=== PATIENT | female | born 1980 | race Caucasian/White ===

== ENCOUNTER 2018-05-31 14:29 | Inpatient (IN) ==
[2018-05-31] MEDS ORDERED: Ondansetron 4 MG/2 ML VIAL IVP ONE (14:36)
[2018-05-31] MEDS ORDERED: 0.9 % Sodium Chloride 500 ML IVC ONE (14:36)
[2018-05-31] MEDS ORDERED: Pantoprazole 40 MG VIAL IVP ONE (14:36)
[2018-05-31 15:10] LABS: Basophils # 0.1 K/mcL (0.0-0.2); Basophils % 0.3 %; Eosinophils % 0.2 %; Hematocrit 43.2 % (35.3-44.9); Hemoglobin 14.6 g/dL (11.5-15.4); Immature Granulocytes % 0.3 % (0-4); Lymphocytes # 2.5 K/mcL (0.6-4.6); Lymphocytes % 14.5 %; Mean Corpuscular HGB Conc 33.8 g/dL (31.6-35.5); Mean Corpuscular Hemoglobin 28.7 pg (28.0-33.3); Mean Platelet Volume 9.4 fL (9.4-12.4); Monocytes # 0.7 K/mcL (0.0-1.3); Platelet Count 308 K/mcL (140-400); Red Blood Count 5.08 M/mcL (3.82-4.97); Red Cell Distribution Width 12.2 % (11.5-14.5); Segmented Neutrophils % 80.7 %
[2018-05-31 15:15] LABS: Bilirubin,Urine Negative (Negative); Blood,Urine Negative (Negative); Clarity,Urine Clear (Clear); Color,Urine Yellow (Yellow); Glucose,Urine (UA) >=1000 mg/dL (Normal); Ketones,Urine 40 mg/dL (Negative); Leukocyte Esterase,Urine Negative (Negative); Nitrite,Urine Negative (Negative); Protein,Urine Negative (Neg-Trace); Specific Gravity,Urine > 1.030 (1.010-1.025); Urobilinogen,Urine Normal (Normal)
[2018-05-31 15:15] LABS: VBG HCO3 22 mEq/L (21-27); VBG PCO2 38 mmHg (41-51); VBG PH 7.37 pH Units (7.32-7.42); VBG PO2 45 mmHg (25-50)
[2018-05-31 15:20] LABS: Prothrombin Time 11.8 Seconds (9.4-12.1)
[2018-05-31 15:23] LABS: Activated Partial Thrombo Time 27.9 Seconds (26.0-36.0)
[2018-05-31 15:33] LABS: Alanine Aminotransferase 9 Units/L (7-52); Albumin/Globulin Ratio 1.2 (1.1-2.2); Alkaline Phosphatase 65 Units/L (34-104); Aspartate Amino Transferase 8 Units/L (13-39); BUN/Creatinine Ratio 20 (6-26); Bilirubin,Direct 0.1 mg/dL (0.0-0.2); Bilirubin,Indirect 0.3 mg/dL (0.0-1.2); Bilirubin,Total 0.4 mg/dL (0.3-1.0); Blood Urea Nitrogen 11 mg/dL (6-20); Calcium 9.2 mg/dL (8.6-10.3); Carbon Dioxide 19 mEq/L (23-29); Chloride 96 mEq/L (98-107); Globulin 3.4 g/dL (2.4-3.5); Glucose 467 mg/dL (70-105); Lipase 12 Units/L (11-82); Osmolality,Calculated 286 (280-300); Potassium 3.8 mEq/L (3.5-5.1); Sodium 128 mEq/L (136-145); Total Protein 7.4 g/dL (6.4-8.9); eGFR For Non-African Americans > 60 (> 60)
[2018-05-31 15:35] LABS: Troponin I 0.07 ng/mL (< 0.04)
[2018-05-31] MEDS ORDERED: Aspirin 81 MG TAB.CHEW PO ONE (15:42)
[2018-05-31] MEDS ORDERED: Nitroglycerin 0.4 MG TAB.SUBL SL PRN (15:42)
[2018-05-31] MEDS ORDERED: Nitroglycerin 0.4 MG TAB.SUBL SL ONE (15:47)
--- NOTE | 2018-05-31 16:12 | Emergency Department Note ---
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 Qualified Code(s): E11.65 - Type 2 diabetes mellitus with hyperglycemia Disposition: Admitted As Inpatient Condition: Fair Referrals: Seferino Hinojosa MD [Primary Care Provider] - Forms: ED Satisfaction Letter Time of Disposition: 16:19 Chest Pain HPI - General Chief Complaint: ED Chest Pain Stated Complaint: CP Time Seen by Provider: 05/31/18 14:33 Source: patient, EMS Limitations: no limitations Vital Signs Reviewed: Yes Nursing Notes Reviewed: Yes - History of Present Illness HPI Narrative: 38-year-old female history of diabetes, hypertension, high cholesterol presented emergency department with chest pain is radiating into her left arm. She describes a 6 out of 10 she was also short of breath. Patient does have history of diabetes said that she has been taking her insulin Raleys normally well- controlled but today it is been higher than normal. She says she normally has high blood sugars whenever she is very stressed or sick which she has both at this time. She has had no cough or congestion she has no pain with urination. Just this chest pain. She is not short of breath at all with this. Describes the pain as 6 out of 10 chest pressure that nothing is making it better. She says it is, coming and going. She notes it while she was at the store walking around and shopping. She has had 2-3 episodes of emesis nonbilious nonbloody. Otherwise patient has no completely to this time including no headache, blurry vision, neck pain, back pain, fever, chills, nausea, shortness of breath, abdominal pain, change in balance, pain with urination, pain or tingling going down the arms or legs or any generalized weakness. Severity scale (1-10): 9 - Related Data Allergies Allergy/AdvReac Type Severity Reaction Status Date / Time ibuprofen [From Advil] Allergy See Verified 05/31/18 14:38 Comments diphenhydramine AdvReac Nausea Verified 05/31/18 14:38 [From Benadryl] All systems ED: reviewed and negative except as stated. Review of Systems: As Per HPI Chest Pain PMH - Past Medical History Medical history: Reports: diabetes, GERD, hyperlipidemia, hypertension, myocardial infarction Psychiatric history: Reports: no psych history NURSING PROJECT COORDINATOR history: Reports: no NURSING PROJECT COORDINATOR history - Social History Smoking Status: Never smoker Alcohol use: Reports: none Drug use: Reports: none Physical Exam - General Limitations: no limitations General appearance: alert, in no apparent distress - Head Head exam: atraumatic, normocephalic, normal inspection - Eye Eye exam: Present: normal appearance, PERRL, EOMI - ENT ENT exam: normal exam, normal oropharynx, mucous membranes moist - Neck Neck exam: Present: normal inspection, full ROM, trachea midline - Chest Chest inspection: Present: normal inspection, symmetric chest wall rise - Respiratory Respiratory exam: Present: normal lung sounds bilaterally - Cardiovascular Cardiovascular exam: Present: regular rate, normal rhythm, normal heart sounds - Abdominal Exam Abdominal exam: Present: soft, Non-Tender, normal bowel sounds. Absent: tenderness, distention, guarding, rebound, rigidity - Extremities Exam Extremities exam: Present: normal inspection, full ROM. Absent: tenderness, pedal edema - Back Exam Back exam: Present: normal inspection, full ROM. Absent: tenderness, CVA tenderness (R), CVA tenderness (L) - Neurological Exam Neurological exam: Present: alert, oriented X3 - Skin Skin exam: Present: warm, dry, intact, normal color Course Vital Signs Temperature 98.7 F 05/31/18 14:31 Pulse Rate 84 05/31/18 14:31 Respiratory Rate 20 05/31/18 14:31 Blood Pressure 192/96 05/31/18 14:31 O2 Sat by Pulse Oximetry 100 05/31/18 14:31 Temperature 98.7 F 05/31/18 14:31 Pulse Rate 66 05/31/18 16:00 Respiratory Rate 17 05/31/18 16:00 Blood Pressure 166/110 05/31/18 16:00 O2 Sat by Pulse Oximetry 100 05/31/18 16:00 Oxygen Delivery Oxygen Delivery Room Air Chest Pain - MDM Narrative Medical decision making narrative: Normal chest pain workup was done. Patient did an elevated troponin of 0.07. Did have leukocytosis as well. Is no noticeable signs of infection in a gap was normal patient was not in DKA at this time. Patient most likely is having an acute coronary syndrome event that is causing her elevation in blood sugar. I did give patient nitroglycerin which did mildly help with her chest pain. We did do 2 EKGs both of them had no acute changes. Patient most likely is having an NSTEMI at this time. Due to patient having elevated troponin as well as his hyperglycemia I feel patient needs to be admitted for further evaluation. As with the hospitalist Dr. Medina who agreed to admit the patient to their service. Patient's admitted in stable condition. Chest X-Ray 05/31/18 14:37 IMPRESSION: No acute disease. D/ / Sara Hussein Cha, MD / Sara Hussein Cha, MD Interpreting Provider: Sara Hussein Cha, MD - Medical Records Medical records reviewed: Yes I reviewed the patient's medical records. - Lab Data Lab results reviewed: Yes I reviewed the patient's lab results. Result diagrams: 05/31/18 14:52 05/31/18 14:52 Lab Results 05/31/18 05/31/18 05/31/18 Range/Units 14:36 14:39 14:42 WBC (4.3-11.1) K/mcL RBC (3.82-4.97) M/mcL Hgb (11.5-15.4) g/dL Hct (35.3-44.9) % MCV (83.0-100.0) fL MCH (28.0-33.3) pg MCHC (31.6-35.5) g/dL RDW (11.5-14.5) % Plt Count (140-400) K/mcL MPV (9.4-12.4) fL Immature Gran % (0-4) % Seg Neutrophils % % Lymphocytes % % Monocytes % % Eosinophils % % Basophils % % Neutrophils # (1.6-8.9) K/mcL Lymphocytes # (0.6-4.6) K/mcL Monocytes # (0.0-1.3) K/mcL Eosinophils # (0.0-0.6) K/mcL Basophils # (0.0-0.2) K/mcL PT 11.8 (9.4-12.1) Seconds INR 1.0 APTT 27.9 (26.0-36.0) Seconds VBG pH (7.32-7.42) pH Units VBG pCO2 (41-51) mmHg VBG pO2 (25-50) mmHg VBG HCO3 (21-27) mEq/L Sodium (136-145) mEq/L Potassium (3.5-5.1) mEq/L Chloride (98-107) mEq/L Carbon Dioxide (23-29) mEq/L BUN (6-20) mg/dL Creatinine (0.60-1.20) mg/dL Est GFR ( Amer) (> 60) Est GFR (Non-Af Amer) (> 60) BUN/Creatinine Ratio (6-26) Glucose (70-105) mg/dL POC Glucose 419 H* (70-99) mg/dL Calculated Osmolality (280-300) Calcium (8.6-10.3) mg/dL Total Bilirubin (0.3-1.0) mg/dL Direct Bilirubin (0.0-0.2) mg/dL Indirect Bilirubin (0.0-1.2) mg/dL AST (13-39) Units/L ALT (7-52) Units/L Alkaline Phosphatase (34-104) Units/L Troponin I (< 0.04) ng/mL Serum Total Protein (6.4-8.9) g/dL Albumin (3.5-5.7) g/dL Globulin (2.4-3.5) g/dL Albumin/Globulin Ratio (1.1-2.2) Lipase (11-82) Units/L Beta-Hydroxybutyric Acd 1.03 H (0.02-0.27) mmol/L Urine Color (Yellow) Urine Clarity (Clear) Urine pH (5.0-8.0) pH Units Ur Specific Pride (1.010-1.025) Urine Protein (Neg-Trace) mg/dL Urine Glucose (UA) (Normal) mg/dL Urine Ketones (Negative) mg/dL Urine Blood (Negative) Urine Nitrite (Negative) Urine Bilirubin (Negative) Urine Urobilinogen (Normal) mg/dL Ur Leukocyte Esterase (Negative) Ur Culture Indicated? (NO) Urine Test (Negative) 05/31/18 05/31/18 05/31/18 Range/Units 14:43 14:52 14:52 WBC 17.4 H (4.3-11.1) K/mcL RBC 5.08 H (3.82-4.97) M/mcL Hgb 14.6 (11.5-15.4) g/dL Hct 43.2 (35.3-44.9) % MCV 85.0 (83.0-100.0) fL MCH 28.7 (28.0-33.3) pg MCHC 33.8 (31.6-35.5) g/dL RDW 12.2 (11.5-14.5) % Plt Count 308 (140-400) K/mcL MPV 9.4 (9.4-12.4) fL Immature Gran % 0.3 (0-4) % Seg Neutrophils % 80.7 % Lymphocytes % 14.5 % Monocytes % 4.0 % Eosinophils % 0.2 % Basophils % 0.3 % Neutrophils # 14.0 H (1.6-8.9) K/mcL Lymphocytes # 2.5 (0.6-4.6) K/mcL Monocytes # 0.7 (0.0-1.3) K/mcL Eosinophils # 0.0 (0.0-0.6) K/mcL Basophils # 0.1 (0.0-0.2) K/mcL PT (9.4-12.1) Seconds INR APTT (26.0-36.0) Seconds VBG pH (7.32-7.42) pH Units VBG pCO2 (41-51) mmHg VBG pO2 (25-50) mmHg VBG HCO3 (21-27) mEq/L Sodium 128 L (136-145) mEq/L Potassium 3.8 (3.5-5.1) mEq/L Chloride 96 L (98-107) mEq/L Carbon Dioxide 19 L (23-29) mEq/L BUN 11 (6-20) mg/dL Creatinine 0.55 L (0.60-1.20) mg/dL Est GFR ( Amer) > 60 (> 60) Est GFR (Non-Af Amer) > 60 (> 60) BUN/Creatinine Ratio 20 (6-26) Glucose 467 H (70-105) mg/dL POC Glucose 439 H* (70-99) mg/dL Calculated Osmolality 286 (280-300) Calcium 9.2 (8.6-10.3) mg/dL Total Bilirubin 0.4 (0.3-1.0) mg/dL Direct Bilirubin 0.1 (0.0-0.2) mg/dL Indirect Bilirubin 0.3 (0.0-1.2) mg/dL AST 8 L (13-39) Units/L ALT 9 (7-52) Units/L Alkaline Phosphatase 65 (34-104) Units/L Troponin I 0.07 H* (< 0.04) ng/mL Serum Total Protein 7.4 (6.4-8.9) g/dL Albumin 4.0 (3.5-5.7) g/dL Globulin 3.4 (2.4-3.5) g/dL Albumin/Globulin Ratio 1.2 (1.1-2.2) Lipase 12 (11-82) Units/L Beta-Hydroxybutyric Acd (0.02-0.27) mmol/L Urine Color (Yellow) Urine Clarity (Clear) Urine pH (5.0-8.0) pH Units Ur Specific Pride (1.010-1.025) Urine Protein (Neg-Trace) mg/dL Urine Glucose (UA) (Normal) mg/dL Urine Ketones (Negative) mg/dL Urine Blood (Negative) Urine Nitrite (Negative) Urine Bilirubin (Negative) Urine Urobilinogen (Normal) mg/dL Ur Leukocyte Esterase (Negative) Ur Culture Indicated? (NO) Urine Test (Negative) 05/31/18 05/31/18 05/31/18 Range/Units 14:56 14:56 15:10 WBC (4.3-11.1) K/mcL RBC (3.82-4.97) M/mcL Hgb (11.5-15.4) g/dL Hct (35.3-44.9) % MCV (83.0-100.0) fL MCH (28.0-33.3) pg MCHC (31.6-35.5) g/dL RDW (11.5-14.5) % Plt Count (140-400) K/mcL MPV (9.4-12.4) fL Immature Gran % (0-4) % Seg Neutrophils % % Lymphocytes % % Monocytes % % Eosinophils % % Basophils % % Neutrophils # (1.6-8.9) K/mcL Lymphocytes # (0.6-4.6) K/mcL Monocytes # (0.0-1.3) K/mcL Eosinophils # (0.0-0.6) K/mcL Basophils # (0.0-0.2) K/mcL PT (9.4-12.1) Seconds INR APTT (26.0-36.0) Seconds VBG pH 7.37 (7.32-7.42) pH Units VBG pCO2 38 L (41-51) mmHg VBG pO2 45 (25-50) mmHg VBG HCO3 22 (21-27) mEq/L Sodium (136-145) mEq/L Potassium (3.5-5.1) mEq/L Chloride (98-107) mEq/L Carbon Dioxide (23-29) mEq/L BUN (6-20) mg/dL Creatinine (0.60-1.20) mg/dL Est GFR ( Amer) (> 60) Est GFR (Non-Af Amer) (> 60) BUN/Creatinine Ratio (6-26) Glucose (70-105) mg/dL POC Glucose (70-99) mg/dL Calculated Osmolality (280-300) Calcium (8.6-10.3) mg/dL Total Bilirubin (0.3-1.0) mg/dL Direct Bilirubin (0.0-0.2) mg/dL Indirect Bilirubin (0.0-1.2) mg/dL AST (13-39) Units/L ALT (7-52) Units/L Alkaline Phosphatase (34-104) Units/L Troponin I (< 0.04) ng/mL Serum Total Protein (6.4-8.9) g/dL Albumin (3.5-5.7) g/dL Globulin (2.4-3.5) g/dL Albumin/Globulin Ratio (1.1-2.2) Lipase (11-82) Units/L Beta-Hydroxybutyric Acd (0.02-0.27) mmol/L Urine Color Yellow (Yellow) Urine Clarity Clear (Clear) Urine pH 6.0 (5.0-8.0) pH Units Ur Specific Pride > 1.030 H (1.010-1.025) Urine Protein Negative (Neg-Trace) mg/dL Urine Glucose (UA) >=1000 H (Normal) mg/dL Urine Ketones 40 H (Negative) mg/dL Urine Blood Negative (Negative) Urine Nitrite Negative (Negative) Urine Bilirubin Negative (Negative) Urine Urobilinogen Normal (Normal) mg/dL Ur Leukocyte Esterase Negative (Negative) Ur Culture Indicated? NO (NO) Urine Test Negative (Negative) - Radiology Data Radiology results reviewed: Yes I reviewed the patient's radiology results. - EKG Data EKG attestation: Yes I reviewed and interpreted this EKG. EKG results narrative: EKG #1 done at 1439 review myself and attending shows sinus rhythm at a rate of 72, RI interval 152, QRS 95, QTC 431. No acute ST changes no acute T-wave changes nor signs of ischemia. No signs of hypertrophy, heart strain, heart block. No Caprice. Abuse/Brugada/HOCM. This EKG is unchanged when compared with old one done 01/31/06. EKG #2 done at 1542 this occurred after patient was having chest pain. This again has no acute ST elevations no acute ischemic changes as a normal sinus rhythm at a rate of 64. There is no heart blocks or hypertrophy or heart strain. No other changes otherwise. Heart Score - Score History: Moderately Suspicious EKG: Normal Age: Less than 45 Risk Factors: Equal/Greater than 3 risk factor or history of atherosclerotic disease Troponin: 1-3x normal limit HEART Score Total: 4 Critical Care Time Critical Care Time: Yes Total Critical Care Time: 35 Attestation: Critical care time 35 minutes managing patient's hyperglycemia and elevated troponin. Attestation Statement - Attestation Attestation: Patient was seen with resident physician. I reviewed the history, physical, assessment and plan, and agree with the findings. I also personally evaluated this patient and had [id number] time with this patient. 30-year-old female the history of diabetes, presents emergency Department chief complaint of earache back pain and chest pain. Patient states that she went to [employer] to obtain earwax remover, and while there she developed pain in her back. She then subsequently developed pain in her chest with some radiation to the left shoulder. Patient states she currently has minimal pain. No diaphoresis no nausea vomiting. She denies other complaints at this time. Review of systems as above remainder negative. Physical exam vital signs are stable. ENT is unremarkable. Heart regular rhythm and rate. Lungs clear. Abdomen is soft and nontender. Extremities unremarkable. Neurologically intact. Skin no rashes. Psych normal. Ears some cerumen but he did see the tympanic membranes are both normal. Back examination the patient had some tenderness palpation of the left lateral mid thoracic paraspinal muscles. ED course I with the patient's history of diabetes and some question as to whether or not she is been maintaining her insulin dosing correctly we did a full workup including cardiac for her chest pain complaints. Her EKG showed no acute ischemic changes. She later developed chest pain in the ER we repeated EKG and that too was negative for acute changes. Her blood glucose was very high. She also had an elevated white cell count, we do not have a definitive source for that. Her chest x-ray did not show acute abnormalities. She did get some relief with nitroglycerin. Because of the elevated troponin and patient's history and risk factor she will be admitted to the hospital service for further evaluation and treatment. Hemodynamically she remained stable while in the emergency department. Agree with resident physician assessment and plan.
[2018-05-31] MEDS ORDERED: Insulin Human Regular 10 UNIT in 0.9 % Sodium Chloride 10 ML IV ONE (16:38)
[2018-05-31] MEDS ORDERED: Naloxone 0.4 MG/ML INJ IVP PRN (16:38)
[2018-05-31] MEDS ORDERED: Ringers Solution, Lactated 1,000 ML IVC SCH (16:45)
--- NOTE | 2018-05-31 18:04 | Internal Med History&Physical ---
Date of Encounter: 05/31/18 Time of Encounter: 17:57 Internal Medicine - H&P: HPI Chief complaint: chest pain Admitted From: Home Plans for Post Hospital Care: Home History of present illness: Ms. Arias is a 38 year old female who has history of diabetes, morbid obesity, hypertension, dyslipidemia history of remote CT in 2005 presenting emergency room for sudden onset of chest pain. Chest pains located located to left upper chest, pressure-like, 10 out of 10, last for few hours, started at 11:30 AM. Pain has no radiations, but associated with shortness of breath. denies diaphoresis, and palpitation dizziness. Patient called the 911 when she arrived the emergency room received 2 nitroglycerin it chest pain improved, currently she is complaining 6 out of 10 pressure. She is on room air looks comfortable. The patient denies fever or chills no cough. But she does complain of some nausea vomiting for 4 days. Denies abdominal pain, denies painful frequency urination. In emergency room and she was find brother glucose 439, WBC 17.4, troponin 0.07 EKG is normal. Patient is going to be admitted for possible non-STEMI and uncontrolled diabetes. I called [employer] customer service for consult, Dr. Cortes will see patient tomorrow Past Med Surg Social Fam HX - Past Medical History Source: patient Medical history: diabetes, GERD, hyperlipidemia, hypertension, myocardial infarction Psychiatric history: no psych history - Past Surgical History Surgical History: no surgical history Additional surgical history: heart cath 2005 - Social History Smoking Status: Never smoker Smokeless Tobacco Status: No Alcohol use: none Drug use: none - Family History Father Hx Family Cardiac Disorders: Yes (CAD) Hx Family Endocrine Disorder: Yes (DM) Internal Medicine - H&P: Meds Allergy/AdvReac Type Severity Reaction Status Date / Time ibuprofen [From Advil] Allergy See Verified 05/31/18 14:38 Comments diphenhydramine AdvReac Nausea Verified 05/31/18 14:38 [From Benadryl] All Systems PM: A 10-system review of systems was performed and is negative for pertinent findings except as documented above in the HPI. - Constitutional Vitals: Temp Pulse Resp BP Pulse Ox 98.7 F 78 16 158/91 99 05/31/18 14:31 05/31/18 17:36 05/31/18 17:36 05/31/18 17:36 05/31/18 17:36 General appearance: Present: A&O X 3, morbidly obese Exam: CONSTITUTIONAL: Patient appears as an age appropriate female well developed, in no acute distress. EYES Clear sclerae, bilateral pupils are equal, reactive to light and accommodation. Extraocular movements are intact RESPIRATORY: No accessory muscle use, bilateral clear to auscultation, no wheezing, no crackles/rales. CARDIOVASCULAR: Regular heart rate, normal S1 and S2, no murmurs GASTROINTESTINAL: bowel sounds present, soft, no tenderness. No hepatosplenomegaly. No bilateral CVA tenderness MUSCULOSKELETAL: Joints in normal range of motion, no clubbing, no edema, no cyanosis. Bilateral peripheral pulses 2+ LYMPHATIC no lymphadenopathy in neck, groin and axilla bilaterally, no thyromegaly. NEUROLOGIC: CN II to XII are grossly intact, no focal neurological deficit. Deep tendon reflexes 2+ bilaterally. Normal light touch sensation to upper and lower extremity PSYCHIATRIC: Oriented x3, with good insight, mood is euthymic. No hallucinations or delusions. SKIN: Skin warm and dry, no rashes, no open wound. Internal Med - H&P Results - Labs CBC & Chem 7: 05/31/18 14:52 05/31/18 14:52 Labs: Short CBC 05/31/18 Range/Units 14:52 WBC 17.4 H (4.3-11.1) K/mcL Hgb 14.6 (11.5-15.4) g/dL Hct 43.2 (35.3-44.9) % Plt Count 308 (140-400) K/mcL Neutrophils # 14.0 H (1.6-8.9) K/mcL BMP 05/31/18 14:52 Sodium 128 L Potassium 3.8 Chloride 96 L Carbon Dioxide 19 L BUN 11 Creatinine 0.55 L Glucose 467 H Calcium 9.2 Cardiac Enzymes 05/31/18 Range/Units 14:52 Troponin I 0.07 H* (< 0.04) ng/mL Liver Function 05/31/18 Range/Units 14:52 Total Bilirubin 0.4 (0.3-1.0) mg/dL Direct Bilirubin 0.1 (0.0-0.2) mg/dL AST 8 L (13-39) Units/L ALT 9 (7-52) Units/L Alkaline Phosphatase 65 (34-104) Units/L Albumin 4.0 (3.5-5.7) g/dL Urine 05/31/18 Range/Units 14:56 Urine Color Yellow (Yellow) Urine Clarity Clear (Clear) Urine pH 6.0 (5.0-8.0) pH Units Ur Specific Lebeau > 1.030 H (1.010-1.025) Urine Protein Negative (Neg-Trace) mg/dL Urine Glucose (UA) >=1000 H (Normal) mg/dL - ABG Interpretation ABG results: 05/31/18 15:10 VBG pH 7.37 VBG pCO2 38 L VBG pO2 45 VBG HCO3 22 - Impressions ITS Impressions Chest X-Ray 05/31/18 14:37 IMPRESSION: No acute disease. D/ / Sara Hussein Cha, MD / Sara Hussein Cha, MD Interpreting Provider: Sara Hussein Cha, MD - Assessment and plan (1) NSTEMI (non-ST elevated myocardial infarction) Current Visit: Yes Status: Acute Assessment and plan: will place tele, ASA, NTG, O2, serial trop start Heparin drip, TTE, conuslt cardiology, discussed with cardiology (2) Hyperglycemia due to type 2 diabetes mellitus Current Visit: Yes Status: Acute Assessment and plan: uncontrolled, will start detemir 20 units BID add SSI hyponatremia is likley from hyperglycemia, place on IVF check A1C Qualifiers: Diabetes mellitus terminal gauger insulin use: with terminal gauger use Qualified Code(s): E11.65 - Type 2 diabetes mellitus with hyperglycemia; 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 (3) Hypertension Current Visit: Yes Status: Acute Assessment and plan: patient does not know what meds she is taking for BP, await for med list Qualifiers: Hypertension type: essential hypertension Qualified Code(s): I10 - Essential (primary) hypertension (4) Hyperlipidemia Current Visit: Yes Status: Acute Assessment and plan: check lipid panel am Qualifiers: Hyperlipidemia type: unspecified Qualified Code(s): E78.5 - Hyperlipidemia, unspecified (5) GERD (gastroesophageal reflux disease) Current Visit: Yes Status: Acute Assessment and plan: continue PPI Qualifiers: Esophagitis presence: with esophagitis Qualified Code(s): K21.0 - Gastro- esophageal reflux disease with esophagitis (6) Morbid obesity Current Visit: Yes Status: Chronic Assessment and plan: life style modification discussed (7) Leukocytosis, unspecified Current Visit: Yes Status: Acute Assessment and plan: CXR is negative, pending ,UA, liklye from CT, dehdyration , stress, will follow up AM Qualifiers: Leukocytosis type: unspecified Qualified Code(s): D72.829 - Elevated white blood cell count, unspecified (8) DVT prophylaxis Current Visit: Yes Status: Acute Assessment and plan: on heparin drip - Time Spent With Patient Total time spent is greater than 50% in coordination of care (as documented) at patient's floor/unit and/or counseling patient: Greater than 35 minutes
[2018-05-31] MEDS ORDERED: *HR* Heparin 5,000 UNIT/ML VIAL IVP PRN ×2 (18:19)
[2018-05-31] MEDS ORDERED: *HR* Morphine 2 MG/ML SYRINGE IVP PRN (18:19)
[2018-05-31] MEDS ORDERED: *HR* Heparin 5,000 UNIT/ML VIAL IVP ONE (18:19)
[2018-05-31] MEDS ORDERED: Ondansetron 4 MG/2 ML VIAL IVP PRN (18:19)
[2018-05-31] MEDS ORDERED: D5% in Water 1,000 ML IVC PRN (18:26)
[2018-05-31] MEDS ORDERED: Dextrose Gel 15 GM/37.5 ML TUBE PO PRN ×2 (18:26)
[2018-05-31] MEDS ORDERED: *HR* Dextrose 50 % in Water (Syg) 50 ML SYRINGE IVP PRN (18:26)
[2018-05-31] MEDS: Nitroglycerin 1 INCH/GM PACKET TP SCH (19:03)
[2018-05-31] MEDS: Insulin LISPRO 300 UNITS/3 ML VIAL SQ SCH ×2 (19:03→22:22)
[2018-05-31] MEDS ORDERED: Isovue-370 500 ML INFUS..BTL IV ONE (19:26)
[2018-05-31] MEDS: Heparin 25,000 UNIT/500 ML D5W 25,000 UNIT/500 ML BAG IVC SCH (20:16)
[2018-06-01] MEDS: Insulin DETEMIR 100 UNIT/ML X5UNITS SQ SCH ×5 (00:13→21:26)
[2018-06-01] MEDS: Ringers Solution, Lactated 1,000 ML IVC SCH ×4 (01:33→17:05)
[2018-06-01 03:07] LABS: Basophils % 0.2 %; Eosinophils % 0.2 %; Hematocrit 39.7 % (35.3-44.9); Hemoglobin 13.3 g/dL (11.5-15.4); Immature Granulocytes % 0.4 % (0-4); Immature Platelets 1.9 % (1.1-6.1); Lymphocytes # 4.2 K/mcL (0.6-4.6); Lymphocytes % 25.8 %; Mean Corpuscular HGB Conc 33.5 g/dL (31.6-35.5); Mean Corpuscular Volume 86.7 fL (83.0-100.0); Mean Platelet Volume 9.4 fL (9.4-12.4); Monocytes # 0.9 K/mcL (0.0-1.3); Monocytes % 5.8 %; Neutrophils # 10.9 K/mcL (1.6-8.9); Platelet Count 307 K/mcL (140-400); Red Blood Count 4.58 M/mcL (3.82-4.97); Red Cell Distribution Width 12.4 % (11.5-14.5); Segmented Neutrophils % 67.6 %
[2018-06-01 03:19] LABS: BUN/Creatinine Ratio 19 (6-26); Blood Urea Nitrogen 9 mg/dL (6-20); Calcium 8.8 mg/dL (8.6-10.3); Carbon Dioxide 19 mEq/L (23-29); Chloride 100 mEq/L (98-107); Chol/HDL Ratio 3.9 (0-4.9); Cholesterol 157 mg/dL (< 200); Glucose 335 mg/dL (70-105); HDL Cholesterol 40 mg/dL (40-59); LDL Cholesterol,Calculated 58 mg/dL (0-99); Osmolality,Calculated 282 (280-300); Potassium 3.9 mEq/L (3.5-5.1); Sodium 130 mEq/L (136-145); Triglycerides 296 mg/dL (< 150); eGFR For Non-African Americans > 60 (> 60)
[2018-06-01 03:42] LABS: Estimated Average Glucose 301 mg/dl; Hemoglobin A1C 12.1 %
[2018-06-01] MEDS: Nitroglycerin 1 INCH/GM PACKET TP SCH ×2 (06:24→10:33)
[2018-06-01] MEDS ORDERED: Insulin DETEMIR 100 UNIT/ML X5UNITS SQ ONE (06:49)
[2018-06-01] MEDS: Aspirin 81 MG TAB.CHEW PO SCH (07:54)
[2018-06-01] MEDS: Insulin LISPRO 300 UNITS/3 ML VIAL SQ SCH ×4 (07:54→21:27)
--- NOTE | 2018-06-01 09:23 | Cardiology Consult Note ---
<Afsaneh Chavez Maria C - Last Filed: 06/01/18 11:54> Date of Encounter: 06/01/18 Time of Encounter: 09:19 Assessment and Plan (1) NSTEMI (non-ST elevated myocardial infarction) Current Visit: Yes Status: Acute - Pt had HI in 2005, was seen here, by Dr. Watson, cannot find records of this - Pt has elevated and increasing trop in the last 24 hours - .07, 0.29, 1.71 - Pt on heparin, carvedilol, 40mg atorvastatin, 81mg ASA - Recommend cardiac cath, will discuss with patient - echocardiogram initially - increase atorvastatin to 80mg in line with NSTEMI treatment guidelines and pt's elevated TG of 296 - check Mg level, replete to 2.0 if not at or above - Afterward, management of risk factors important - A1c is 12.1, TG 296, weight management, contraceptive use Discussion w patient/family: The assessment and plan as outlined above was discussed with the patient and/or family members who expressed understanding and agreement. All questions were answered. Thank you for involving us in the care of your patient. Please call with any questions. History of Present Illness Consult date: 06/01/18 Requesting physician: Nithya Mchugh Consult reason: Chest pain NSTEMI Chief complaint: Chest pain History of present illness: Ms. Arias is a 38 year old female with PmHx HLPD, HTN, poorly controlled type 2 DM, previous HI in 2005, presenting with chest pain that began yesterday around noon while she was walking around a store. She states that it came on suddenly, felt like someone was sitting on her chest, radiated to between her shoulder blades, made worse by belching, made better by NG she received in the ED, and was 10/10 in severity, lasting several hours. She has never felt pain like this before, and it was not the same as the pain she felt in 2006 with her previous HI. She endorses nausea, vomiting x 2, and diaphoresis, but denies lightheadedness, dizziness, numbness or tingling, or visual changes. Her LMP was 4-1/2 mos ago when she had her implantable BC removed from her arm, and is currently on OCP that prevents her from menstruating. She does not remember the name of it. She denies any hx of smoking, denies any illicit drugs, or any alcohol. She does housework for exercise, tries to watch what she eats, and denies any consumption of caffeine. Additionally, she denies fevers/chills, abd pain, dysuria, LE swelling, constipation, diarrhea. Past Med Surg Social Fam HX - Past Medical History Medical history: diabetes, GERD, hyperlipidemia, hypertension, myocardial infarction Psychiatric history: no psych history - Past Surgical History Surgical History: no surgical history Additional surgical history: heart cath 2005 - Social History Smoking Status: Never smoker Smokeless Tobacco Status: No Alcohol use: none Drug use: none - Family History Father Hx Family Cardiac Disorders: Yes (CAD) Hx Family Endocrine Disorder: Yes (DM) Medications and Allergies Atenolol [Tenormin] 50 mg PO DAILY 06/01/18 [History] Atorvastatin Calcium 80 mg PO HS 06/01/18 [History] Ergocalciferol (VITAMIN D2) [Vitamin D2] 50,000 unit PO 2XW 06/01/18 [History] Fluticasone Propionate Nasal [Flonase] 1 spray NS BID 06/01/18 [History] Insulin ASPART [Novolog Flexpen] 0 - 15 unit SQ TID 06/01/18 [History] Insulin Glargine,Hum.rec.anlog [Lantus Solostar] 06/01/18 [History] Levocetirizine Dihydrochloride [Allergy Relief] 5 mg PO DAILY 06/01/18 [History] Losartan Potassium [Cozaar] 50 mg PO DAILY 06/01/18 [History] Metformin HCl [Glucophage] 1,000 mg PO BID 06/01/18 [History] Norgestimate-Ethinyl Estradiol [Previfem Tablet] 1 tab PO DAILY 06/01/18 [History] Omeprazole [PriLOSEC] 20 mg PO DAILY 06/01/18 [History] Allergy/AdvReac Type Severity Reaction Status Date / Time ibuprofen [From Advil] Allergy See Verified 05/31/18 14:38 Comments diphenhydramine AdvReac Nausea Verified 05/31/18 14:38 [From Benadryl] All Systems Review: The remainder of the systems were reviewed and are negative - Constitutional Constitutional: no chills, no fever(s) - EENT Eyes: no blurred vision, no loss of vision - Cardiovascular Cardiovascular: chest pain with exertion, diaphoresis, no dyspnea at rest, no dyspnea on exertion, no leg edema, no lightheadedness, no syncope - Gastrointestinal Gastrointestinal: nausea, no abdominal pain, no constipation, no diarrhea - Genitourinary Genitourinary: no dysuria Physical Examination Vital Signs, Last 4 Hours Pulse Resp BP Pulse Ox 06/01/18 07:42 80 18 173/90 99 General: Conversant, No Apparent Distress HEENT: Atraumatic, Normocephaly, Mucus Membranes Moist Neck: No JVD, Normal carotid pulses Cardiac: Reg Rate and Rhythm, Normal S1 and S2, No Murmur Lungs: Normal Breath Sounds, No Wheeze, Rales, Rhonchi Neuro: Alert and responsive, No focal deficits noted Abdomen: Soft, Non-Tender Skin: No rashes noted on visualized skin Musculoskeletal: No Chest Wall Tenderness Extremities: No Clubbing, No Cyanosis, Normal Pulses, Other (mild LE edema noted bilaterally) Results 06/01/18 02:44 06/01/18 02:44 Lab Results 05/31/18 05/31/18 05/31/18 14:36 14:52 14:52 WBC 17.4 H Hgb 14.6 Hct 43.2 Plt Count 308 INR 1.0 APTT 27.9 D-Dimer Sodium 128 L Potassium 3.8 Chloride 96 L Carbon Dioxide 19 L BUN 11 Creatinine 0.55 L Glucose 467 H Calcium 9.2 Total Bilirubin 0.4 AST 8 L ALT 9 Alkaline Phosphatase 65 Troponin I 0.07 H* Lipase 12 05/31/18 05/31/18 06/01/18 18:38 18:43 02:44 WBC 16.1 H Hgb 13.3 Hct 39.7 Plt Count 307 INR APTT D-Dimer 559 H Sodium Potassium Chloride Carbon Dioxide BUN Creatinine Glucose Calcium Total Bilirubin AST ALT Alkaline Phosphatase Troponin I 0.29 H* Lipase 06/01/18 06/01/18 02:44 02:44 WBC Hgb Hct Plt Count INR APTT D-Dimer Sodium 130 L Potassium 3.9 Chloride 100 Carbon Dioxide 19 L BUN 9 Creatinine 0.47 L Glucose 335 H Calcium 8.8 Total Bilirubin AST ALT Alkaline Phosphatase Troponin I 1.71 H* Lipase Consult Discharge Plan - Plan Referrals: Seferino Hinojosa MD [Primary Care Provider] - <Felipa London - Last Filed: 06/01/18 17:06> Date of Encounter: 06/01/18 - Attending Attestation I examined this patient and my medical decision-making was reviewed with the Resident Physician. I agree with the documented findings, disposition and treatment plan as described. Ms. Arias presents with chest pain while shopping. Troponin elevation now 7.4. Longstanding history of poorly controlled diabetes, HgbA1C 12. Reported HI in 2006 not requiring PCI per patient. At the bedside patient is AAOx3, NAD, chest pain free since admission No cardiac murmur, gallop, no JVD or significant LE edema Vital signs stable Labs reviewed ECG's reviewed (3 ECGs from 05/31/2018) demonstrating NSR, no acute ECG changes, no dynamic changes between ECGs Impression: 1. NSTEMI: Elevated troponin in setting of chest pain and risk factors for CAD - poorly controlled DM, morbid obesity, hypertriglyceridemia. Recommended proceeding with LHC - R/B/A discussed with the patient, her brother (Vasu) on speakerphone per patient request. Patient expressed understanding of the risks of the procedure. She would like to discuss with family before consenting. For now, continue heparin gtt, asa, statin increased, BB. Keep NPO after midnight for possible procedure. Echo pending. Patient denies any history of bleeding events. No upcoming elective procedures. Assessment and Plan Discussion w patient/family: The assessment and plan as outlined above was discussed with the patient and/or family members who expressed understanding and agreement. All questions were answered. Thank you for involving us in the care of your patient. Please call with any questions. History of Present Illness History of present illness: Ms. Arias is a 38 year old female All Systems Review: The remainder of the systems were reviewed and are negative Physical Examination Vital Signs, Last 4 Hours Pulse Resp BP Pulse Ox 06/01/18 16:29 103 18 177/109 99 Results 06/01/18 02:44 06/01/18 02:44 Lab Results 05/31/18 05/31/18 06/01/18 18:38 18:43 02:44 WBC 16.1 H Hgb 13.3 Hct 39.7 Plt Count 307 D-Dimer 559 H Sodium Potassium Chloride Carbon Dioxide BUN Creatinine Glucose Calcium Magnesium Troponin I 0.29 H* 06/01/18 06/01/18 06/01/18 02:44 02:44 16:14 WBC Hgb Hct Plt Count D-Dimer Sodium 130 L Potassium 3.9 Chloride 100 Carbon Dioxide 19 L BUN 9 Creatinine 0.47 L Glucose 335 H Calcium 8.8 Magnesium 1.6 Troponin I 1.71 H*
--- NOTE | 2018-06-01 10:42 | Internal Med Progress Note ---
Hospitalist Progress Note - Encounter Date of Encounter: 06/01/18 Time of Encounter: 10:40 - Subjective Interval History: patient was seen and examined at bedside. she denies pain in her chest, has remained NPO, unsure of how much insulin she takes, denies leg edema. denies Fever, chills, dysuria, cough, SOB, palpitations. - Exam Vitals: Temp Pulse Resp BP Pulse Ox 98.3 F 80 18 173/90 99 06/01/18 04:08 06/01/18 07:42 06/01/18 07:42 06/01/18 07:42 06/01/18 07:42 Exam: General: Patient is alert, oriented, no acute distress, obese Head: atraumatic, normocephalic, Eye: normal appearance, PERRL, no scleral icterus, no conjunctival injection ENT: mucous membranes moist, normal external ear exam Neck: normal inspection, trachea midline, full ROM, no carotid bruits Chest: normal inspection, symmetric chest rise Respiratory: Decreased breath sounds secondary to body habitus, Good respiratory effort. Bilateral breath sounds are clear without wheezing, crackles, or rhonchi. Cardiovascular: Distant heart sounds secondary to body habitus, Regular rate and rhythm. s1 and s2 No clicks, rubs, gallops, or murmors. Abdomen: Bowel sounds present normoactive x-4 quadrants. Abdomen is soft, nondistended. no Epigastric tenderness. No guarding or rebound. No organ omegaly noted, obese musculoskeletal: Spontaneously moving all extremities. no edema, no calf tender ness Skin: warm, dry, intact. Neuro: Alert and oriented x4. Sensation light touch intact. Cranial nerves 2- 12 is intact. No focal deficit Psych: Patient's affect is normal - Assessment and Plan (1) NSTEMI (non-ST elevated myocardial infarction) Current Visit: Yes Status: Acute Assessment and Plan: Pt had MD in 2005 ( reports that the only medication prescribed to her was a tenolol, unsure if she takes ASA) Pt has elevated and increasing trop in the last 24 hours - .07, 0.29, 1.71 on heparin drip cardiology consulted - will follow recommendations. will continue ASA, lipitor, coreg. losartan ( dose increased for better BP control) TTE lipid panel and A1c noted. CTPA - ruled out PE (2) Hyperglycemia due to type 2 diabetes mellitus Current Visit: Yes Status: Acute Assessment and Plan: uncontrolled secondary to ? medication non- compliance A1c 12.1 Was started on detemir 20 units twice a day We will continue with lispro for sliding scale- adjust as per finger sticks. was counseled on medication compliance. (3) Hyperlipidemia Current Visit: Yes Status: Acute Assessment and Plan: continue Statins lipid panel noted was counseled on diet nutrition consulted (4) Hypertension Current Visit: Yes Status: Acute Assessment and Plan: continue coreg and losartan- adjust as per BP (5) Leukocytosis, unspecified Current Visit: Yes Status: Acute Assessment and Plan: most likely reactive secondary to NSTEMI, and poorly controlled DM. CTPA- with no signs of infection UA negative if she develops fever r SIRS will consider starting her on ABx. (6) Morbid obesity Current Visit: Yes Status: Chronic Assessment and Plan: Was counseled nutrition consulted (7) GERD (gastroesophageal reflux disease) Current Visit: Yes Status: Acute Assessment and Plan: omeprazole PO (8) DVT prophylaxis Current Visit: Yes Status: Acute Assessment and Plan: On heparin drip - Time Spent with Patient Total time spent is greater than 50% in coordination of care (as documented) at patient's floor/unit and/or counseling patient: Internal Medicine: Result - Labs CBC & Chem 7: 06/01/18 02:44 06/01/18 02:44 Labs: Short CBC 05/31/18 06/01/18 Range/Units 14:52 02:44 WBC 17.4 H 16.1 H (4.3-11.1) K/mcL Hgb 14.6 13.3 (11.5-15.4) g/dL Hct 43.2 39.7 (35.3-44.9) % Plt Count 308 307 (140-400) K/mcL Neutrophils # 14.0 H 10.9 H (1.6-8.9) K/mcL BMP 05/31/18 06/01/18 14:52 02:44 Sodium 128 L 130 L Potassium 3.8 3.9 Chloride 96 L 100 Carbon Dioxide 19 L 19 L BUN 11 9 Creatinine 0.55 L 0.47 L Glucose 467 H 335 H Calcium 9.2 8.8 Cardiac Enzymes 05/31/18 05/31/18 06/01/18 Range/Units 14:52 18:38 02:44 Troponin I 0.07 H* 0.29 H* 1.71 H* (< 0.04) ng/mL Liver Function 05/31/18 Range/Units 14:52 Total Bilirubin 0.4 (0.3-1.0) mg/dL Direct Bilirubin 0.1 (0.0-0.2) mg/dL AST 8 L (13-39) Units/L ALT 9 (7-52) Units/L Alkaline Phosphatase 65 (34-104) Units/L Albumin 4.0 (3.5-5.7) g/dL Urine 05/31/18 Range/Units 14:56 Urine Color Yellow (Yellow) Urine Clarity Clear (Clear) Urine pH 6.0 (5.0-8.0) pH Units Ur Specific Stephens > 1.030 H (1.010-1.025) Urine Protein Negative (Neg-Trace) mg/dL Urine Glucose (UA) >=1000 H (Normal) mg/dL - ABG Interpretation ABG results: PT/INR, D-dimer PT 11.8 Seconds (9.4-12.1) 05/31/18 14:36 D-Dimer 559 ng/mLFEU (0-500) H 05/31/18 18:43 - Impressions Impressions Chest X-Ray 05/31/18 14:37 IMPRESSION: No acute disease. D/ / Sara Hussein Cha, MD / Sara Hussein Cha, MD Interpreting Provider: Sara Hussein Cha, MD Chest CTA 05/31/18 19:26 IMPRESSION: No finding to suggest pulmonary embolus. 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: with predatory animal exterminator use Qualified Code(s): E11.65 - Type 2 diabetes mellitus with hyperglycemia; Z79.4 - senior care (current) use of insulin (3) Hyperlipidemia Qualifiers: Hyperlipidemia type: unspecified Qualified Code(s): E78.5 - Hyperlipidemia, unspecified (4) Hypertension Qualifiers: Hypertension type: essential hypertension Qualified Code(s): I10 - Essential (primary) hypertension (5) Leukocytosis, unspecified Qualifiers: Leukocytosis type: unspecified Qualified Code(s): D72.829 - Elevated white blood cell count, unspecified (7) GERD (gastroesophageal reflux disease) Qualifiers: Esophagitis presence: with esophagitis Qualified Code(s): K21.0 - Gastro- esophageal reflux disease with esophagitis
[2018-06-01 16:55] LABS: Magnesium 1.6 mg/dL (1.6-2.6)
[2018-06-01] MEDS: Heparin 25,000 UNIT/500 ML D5W 25,000 UNIT/500 ML BAG IVC SCH (16:55)
[2018-06-01 16:58] LABS: Troponin I 7.4 ng/mL (< 0.04)
[2018-06-01] MEDS ORDERED: NON-FORMULARY MEDICATION 1 EACH EACH (Atorvastatin Calcium [Atorvastatin Calcium] 80 MG) PO SCH (21:00)
[2018-06-02] MEDS: Ringers Solution, Lactated 1,000 ML IVC SCH ×3 (01:17→18:09)
[2018-06-02 04:38] LABS: BUN/Creatinine Ratio 16 (6-26); Blood Urea Nitrogen 7 mg/dL (6-20); Calcium 8.6 mg/dL (8.6-10.3); Carbon Dioxide 22 mEq/L (23-29); Chloride 104 mEq/L (98-107); Glucose 275 mg/dL (70-105); Hematocrit 39.7 % (35.3-44.9); Hemoglobin 13.3 g/dL (11.5-15.4); Magnesium 1.5 mg/dL (1.6-2.6); Mean Corpuscular HGB Conc 33.5 g/dL (31.6-35.5); Mean Corpuscular Hemoglobin 28.9 pg (28.0-33.3); Mean Corpuscular Volume 86.1 fL (83.0-100.0); Osmolality,Calculated 286 (280-300); Phosphorous 2.9 mg/dL (2.7-4.5); Platelet Count 294 K/mcL (140-400); Red Blood Count 4.61 M/mcL (3.82-4.97); Red Cell Distribution Width 12.7 % (11.5-14.5); Sodium 134 mEq/L (136-145); eGFR For Non-African Americans > 60 (> 60)
[2018-06-02] MEDS: Nitroglycerin 1 INCH/GM PACKET TP SCH (06:36)
[2018-06-02] MEDS ORDERED: Adenosine 90 MG/30 ML MLS IV ONE (08:26)
[2018-06-02] MEDS: Cholecalciferol (D-3) 1,000 UNIT TABLET PO SCH (08:44)
[2018-06-02] MEDS: Insulin LISPRO 300 UNITS/3 ML VIAL SQ SCH ×4 (08:55→21:35)
[2018-06-02] MEDS: Aspirin 81 MG TAB.CHEW PO SCH (08:57)
[2018-06-02] MEDS: Fluticasone Propionate Nasal 50 MCG/SPRAY BOTTLE NS SCH (08:57)
[2018-06-02] MEDS: Heparin 25,000 UNIT/500 ML D5W 25,000 UNIT/500 ML BAG IVC SCH (09:00)
[2018-06-02] MEDS: Insulin DETEMIR 100 UNIT/ML X5UNITS SQ SCH ×2 (09:23→21:35)
--- NOTE | 2018-06-02 12:34 | Internal Med Progress Note ---
Hospitalist Progress Note - Encounter Date of Encounter: 06/02/18 Time of Encounter: 09:00 - Subjective Interval History: patient was seen and examined at bedside. she denies pain in her chest, has remained NPO, no overnight events. denies Fever, chills, dysuria, cough, SOB, palpitations. - Exam Vitals: Temp Pulse Resp BP Pulse Ox 98.3 F 78 15 124/93 98 06/02/18 11:34 06/02/18 11:34 06/02/18 11:34 06/02/18 11:34 06/02/18 11:34 Exam: General: Patient is alert, oriented, no acute distress, obese Head: atraumatic, normocephalic, Eye: normal appearance, PERRL, no scleral icterus, no conjunctival injection ENT: mucous membranes moist, normal external ear exam Neck: normal inspection, trachea midline, full ROM, no carotid bruits Chest: normal inspection, symmetric chest rise Respiratory: Decreased breath sounds secondary to body habitus, Good respiratory effort. Bilateral breath sounds are clear without wheezing, crackles, or rhonchi. Cardiovascular: Distant heart sounds secondary to body habitus, Regular rate and rhythm. s1 and s2 No clicks, rubs, gallops, or murmors. Abdomen: Bowel sounds present normoactive x-4 quadrants. Abdomen is soft, nondistended. no Epigastric tenderness. No guarding or rebound. No organomegaly noted, obese musculoskeletal: Spontaneously moving all extremities. no edema, no calf tenderness Skin: warm, dry, intact. Neuro: Alert and oriented x4. Sensation light touch intact. Cranial nerves 2- 12 is intact. No focal deficit Psych: Patient's affect is normal - Assessment and Plan (1) NSTEMI (non-ST elevated myocardial infarction) Current Visit: Yes Status: Acute Assessment and Plan: Pt had [place] in 2005 ( reports that the only medication prescribed to her was atenolol, unsure if she takes ASA) Pt has elevated and increasing trop in the last 24 hours - .07, 0.29, 1.71, 7.40 on heparin drip cardiology on board for [facility] 06/02/18 will continue ASA, lipitor, coreg. losartan- BP and HR controlled TTE 06/01/18- LVEF 65%. Normal LV chamber size, wall thickness and function. lipid panel and A1c noted. CTPA - ruled out PE TTE: Impressions: LVEF 65%. Normal LV chamber size, wall thickness and function. Normal right ventricular structure and function. No significant valvular dysfunction. Unable to estimate RVSP due to lack of TR jet. Small focal (posterior to RA) pericardial effusion without echocardiographic tamponade physiology. (2) Hyperglycemia due to type 2 diabetes mellitus Current Visit: Yes Status: Acute Assessment and Plan: uncontrolled secondary to ? medication non- compliance A1c 12.1 BHB 1.03 detemir increased to 25 units twice a day We will continue with lispro for sliding scale- adjust as per finger sticks. was counseled on medication compliance. 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 CTPA- with no signs of infection UA negative if she develops fever or SIRS will consider starting her on ABx. (7) Morbid obesity Current Visit: Yes Status: Chronic Assessment and Plan: Was counseled nutrition consulted (8) GERD (gastroesophageal reflux disease) Current Visit: Yes Status: Acute Assessment and Plan: omeprazole PO (9) DVT prophylaxis Current Visit: Yes Status: Acute Assessment and Plan: On heparin drip - Time Spent with Patient Total time spent is greater than 50% in coordination of care (as documented) at patient's floor/unit and/or counseling patient: Internal Medicine: Result - Labs CBC & Chem 7: 06/02/18 03:25 06/02/18 03:25 Labs: Short CBC 06/02/18 Range/Units 03:25 WBC 15.0 H (4.3-11.1) K/mcL Hgb 13.3 (11.5-15.4) g/dL Hct 39.7 (35.3-44.9) % Plt Count 294 (140-400) K/mcL BMP 06/02/18 03:25 Sodium 134 L Potassium 3.0 L Chloride 104 Carbon Dioxide 22 L BUN 7 Creatinine 0.43 L Glucose 275 H Calcium 8.6 Cardiac Enzymes 06/01/18 Range/Units 16:14 Troponin I 7.40 H* (< 0.04) ng/mL - ABG Interpretation ABG results: PT/INR, D-dimer PT 11.8 Seconds (9.4-12.1) 05/31/18 14:36 D-Dimer 559 ng/mLFEU (0-500) H 05/31/18 18:43 - Impressions Impressions Echocardiogram 06/01/18 18:19 Impressions: LVEF 65%. Normal LV chamber size, wall thickness and function. Normal right ventricular structure and function. No significant valvular dysfunction. Unable to estimate RVSP due to lack of TR jet. Small focal (posterior to RA) pericardial effusion without echocardiographic tamponade physiology. Left Ventricular Wall Motion: Rest Echo Findings All wall segments showed normal motion. Findings: Study Quality * Technically adequate exam. ECG Findings * Normal sinus rhythm. Left Ventricle * LVEF 65%. * Normal LV chamber size, wall thickness and function. * Normal left ventricular diastolic function. Right Ventricle * Normal right ventricular structure and function. Left Atrium * Normal left atrial size. Right Atrium * Normal right atrial size. Interatrial Septum * Interatrial septum not well evaluated. * No evidence of PFO by color Doppler. Aortic Valve * Trileaflet aortic valve. * No aortic stenosis. * No aortic regurgitation. Mitral Valve * Normal mitral valve structure and function. * No mitral stenosis. * No mitral regurgitation. Tricuspid Valve * Normal tricuspid valve structure and function. * No tricuspid stenosis. * No tricuspid regurgitation. * Unable to estimate RVSP due to lack of TR jet. * Estimated RA pressure is 3 mmHg. Pulmonic Valve * No pulmonic stenosis. * No pulmonic regurgitation. * Normal pulmonic valve structure. Aorta * Normally sized aortic root. Pericardium * There is a small focal (posterior of RA) pericardial effusion present. * There is no echocardiographic evidence of tamponade. IVC * Normal IVC dimensions and inspiratory collapse. Consult Discharge Plan - Plan Referrals: Seferino Hinojosa MD [Primary Care Provider] - (2) Hyperglycemia due to type 2 diabetes mellitus Qualifiers: Diabetes mellitus [facility] insulin use: with termite inspector use Qualified Code(s): E11.65 - Type 2 diabetes mellitus with hyperglycemia; Z79.4 - shelter (current) use of insulin (4) Hyperlipidemia Qualifiers: Hyperlipidemia type: unspecified Qualified Code(s): E78.5 - Hyperlipidemia, unspecified (5) Hypertension Qualifiers: Hypertension type: essential hypertension Qualified Code(s): I10 - Essential (primary) hypertension (6) Leukocytosis, unspecified Qualifiers: Leukocytosis type: unspecified Qualified Code(s): D72.829 - Elevated white blood cell count, unspecified (8) GERD (gastroesophageal reflux disease) Qualifiers: Esophagitis presence: with esophagitis Qualified Code(s): K21.0 - Gastro- esophageal reflux disease with esophagitis
[2018-06-02] MEDS ORDERED: 0.9 % Sodium Chloride 1,000 ML ONE ×2 (15:34→16:04)
[2018-06-02] MEDS ORDERED: Heparin 1,000 UNITS/500 mL 500 ML ONE (15:35)
[2018-06-02] MEDS ORDERED: *HR* Heparin 10,000 UNIT/10 ML VIAL ONE (15:35)
[2018-06-02] MEDS ORDERED: ISOVUE-370 200 ML INFUS..BTL ONE ×2 (15:35→16:45)
[2018-06-02] MEDS ORDERED: Nitroglycerin 1,000 MCG/10 ML VIAL IV ONE (15:35)
--- NOTE | 2018-06-02 15:52 | Pre-Sedation Evaluation ---
Pre-sedation evaluation - Pre-sedation checklist Date of procedure: 06/02/18 Procedure: Cardiac Catheterization Recent Vitals: Last Vital Signs Temp 98.3 F 06/02/18 11:34 Pulse 78 06/02/18 11:34 Resp 15 06/02/18 11:34 BP 124/93 06/02/18 11:34 Pulse Ox 98 06/02/18 11:34 H&P (including ROS) documented in medical record: Yes Previous reaction to sedatives/anesthetics: No Dietary Status: NPO after Midnight Airway Assessment: Patient can open mouth completely, TMJ function normal, Micrognathia (under-bite, receding chin) absent, Neck with adequate range of motion Dentition: No loose teeth or bridges Possible difficult airway: No ASA Classification *see protocol: CLASS II-Mild systemic disease Plan of Care: Pt appropriate candidate for procedure/moderate/conscious sedation, Risks/benefits of procedure/sedation discussed w/ patient/family Cardiac Registry (Cardio Only) - Functional Capacity Functional Capacity: < 4 METS - Clincal Frailty Scale Clinical Frailty Scale: Vulnerable
[2018-06-02] MEDS ORDERED: *HR* FentaNYL (PF) 100 MCG/2 ML VIAL ONE (16:03)
[2018-06-02] MEDS ORDERED: *HR* Midazolam HCl 2 MG/2 ML VIAL ONE (16:03)
[2018-06-02] MEDS ORDERED: *HR* Bivalirudin 250 MG VIAL IVC ONE (16:45)
--- NOTE | 2018-06-02 17:16 | Electrocardiograph Report ---
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
--- NOTE | 2018-06-02 17:17 | Electrocardiograph Report ---
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
--- NOTE | 2018-06-02 17:24 | Invasive Diagnostic Lab Proc ---
Name: Ami Arias Date of Study: 06/02/2018 Date: 1980 Ht: 61.8in Medical Record#: [id number] Age: 38 Wt: 238.10lb Gender: Female BSA: 2.05 Order #: [id number] BMI: 43.82 Physicians Procedure Physician: Ninfa Belle MD, [facility] Referring MD: Referring MD: Staff Name Position Time In John Mims RN Monitor 03:57 PM Priscilla Schroeder RN Offset Lithographic Press Setter 03:57 PM Salena Pak RT Scrub 03:57 PM Indications Indication Non-Stemi Procedures Performed Procedure L HRT ARTERY/VENTRICLE ANGIO IV Doppler BLD Flow 1st Vessel Pre-Procedure Checklist Informed consent is complete signed and on chart. H&P is on chart. ID band is on and ID verified with patient. Patient NPO for procedure The procedure was described for the patient and questions were answered. Blood Pressure: 143/92 ECG is on chart. Rhythm: NSR Plan of Care Patient will tolerate the procedure without complications. Adequate level of comfort will be maintained. Hemodynamics will remain stable Patient will recover from procedure without complications. Respiratory function will be maintained. Cardiac rhythm will remain stable. Patient temperature will be maintained. Patient and/or family have verbalized understanding of the procedure. Patient Education Chief Complaint/Reason for Test: Cardiac Cath Developmental Category: Adult (18-64 years) Developmentally Appropriate for Age: Yes Learning Barriers: None Education Needs: Procedure Education Method: Verbal Information Taught: Cardiac Cath Educational Evaluation: Able to repeat information Intravenous Access Time IV Size Location DC'd Fluid/Drip Rate Units RN 20g 1 06/26" Patent On Arrival Rt Antecubital 0.9NaCl John Mims RN 20g 1 06/26" Patent On Arrival Lt Antecubital Allergies ibuprofen diphenhydramine ADVIL Vital Signs Time BP (mmHg) HR (bpm) O2 Sat. RR (bpm) LOC 03:58 PM / % 5 = Fully awake and oriented or at pre-proc level 03:58 PM / % 4 = Oriented but drowsy 04:13 PM / % 4 = Oriented but drowsy 04:28 PM / % 4 = Oriented but drowsy 04:43 PM / % 4 = Oriented but drowsy 04:03 PM 171 / 102 84 98 % 0 04:07 PM 162 / 99 87 100 % 18 04:12 PM 124 / 77 84 96 % 28 04:17 PM 138 / 80 85 98 % 16 04:22 PM 140 / 89 84 98 % 25 04:27 PM 129 / 85 72 98 % 24 04:32 PM 136 / 86 84 99 % 15 04:37 PM 131 / 80 85 98 % 28 04:42 PM 133 / 85 82 98 % 26 04:47 PM 129 / 80 84 98 % 25 04:52 PM 144 / 84 87 99 % 25 Procedural Medications Time Medication Dose Units Method Given By 03:57 PM Oxygen 2 L/min nasal cannula Priscilla Schroeder RN 04:05 PM Versed 2 mg Intravenous Priscilla Schroeder RN 04:05 PM Fentanyl 50 mcg Intravenous Priscilla Schroeder RN 04:17 PM Lidocaine 2% 19 ml Subcutaneous Ninfa Belle MD, FAC 04:37 PM Angiomax 0.75mg/kg bolus: 16.5 ml Intravenous Priscilla Schroeder RN 04:38 PM Angiomax 1.75mg/kg/hr: 38.5 ml/hr Intravenous Priscilla Schroeder RN 04:46 PM 90mg Adenosine in 90 ml 0.9 NS 907 ml/hr Intravenous Priscilla Schroeder RN Pedrito Score Preprocedure Postprocedure Activity 2- Moves 4 extremities sustained head lift Activity 2- Moves 4 extremities sustained head lift Circulation 2- SBP +/= 20 points of pre-anesthetic level Circulation 2- SBP +/= 20 points of pre-anesthetic level Consciousness 2- Awake and alert oriented x 3 Consciousness 2- Awake and alert oriented x 3 O2 Saturation 2- Able to maintain O2 satruation of 92% on room air O2 Saturation 2- Able to maintain O2 satruation of 92% on room air Respiratory 2- Able to deep breathe and cough well Respiratory 2- Able to deep breathe and cough well Total Score 10 Total Score 10 Contrast Agent: Isovue Diagnostic Contrast: 103 ml Total Contrast: 103 ml Fluoro Dose: 4787 mGy Activated Clotting Time Time Seconds to Clot 04:37 PM 124 Procedure Log Time Note Enter By 03:57 PM Pt arrived to chemical laboratory scientist 2 at 15:57 ember 03:57 PM John Mims RN Position: Monitor Time in: 15:57 ember 03:57 PM Priscilla Schroeder RN Position: Offset Lithographic Press Setter Time in: 15:57 ember 03:57 PM Salena Pak Position: Scrub [facility]: 15:57 [facility] charges- Angio tray pack, Navilyst 3mm J, Pulse Oximetry and ACIST tubing and transducer [facility]:57 PM Physician arrived 15:57 [facility] PM Meet and greet completed [facility] :57 PM Sign in performed according to hospital policy. Informed consent was obtained. [facility] : PM Procedure start 15:57 [facility] PM Time: 15:57 Oxygen on at 2 L/min per nasal cannula by [facility] PM Time: 15:58 Patient comfortable and pain free: Yes [facility] 58 PM Time: 15:58LOC: 5 = Fully awake and oriented or at pre-proc level [facility] PM CathStat 04:01 PM Vitals capture started with the following parameters, Patient=Adult, Interval=5 min, Initial [place]=170 mmHg, Deflation Rate=5 mmHg, Cuff placed on Right Arm 04:03 PM HR=84 bpm, KMOO=893/102 mmhg, SpO2=98.0 %, Resp=0 B/min, Comment=nsr 04:05 PM Time: 16:05 Versed 2 mg Intravenous Given by Priscilla Schroeder RN 04:05 PM Time: 16:05 Fentanyl 50 mcg Intravenous Given by Priscilla Schroeder RN khris 04:07 PM HR=87 bpm, BHSH=916/99 mmhg, AtJ2=403.0 %, Resp=18 B/min, Comment=nsr 04:12 PM HR=84 bpm, IVCX=040/77 mmhg, SpO2=96.0 %, Resp=28 B/min, Comment=nsr 04:13 PM Time: 15:58 Patient comfortable and pain free: Yes [facility] :13 PM Time: 15:58LOC: 4 = Oriented but drowsy [facility] 04:17 PM Time out was performed according to hospital policy. Conscious sedation and anesthesia was achieved (see medication log with in this report above) [facility] 04:17 PM HR=85 bpm, BUJK=727/80 mmhg, SpO2=98.0 %, Resp=16 B/min, Comment=nsr 04:17 PM Pressure channel 1 zero failed. 04:17 PM Pressure channel 1 zero failed. 04:17 PM Pressure channel 1 zeroed. 04:20 PM Time: 16:17 19 ml Lidocaine 2% to right groin Subcutaneous Given by Ninfa Belle MD, [facility] jcallihan 04:20 PM Access obtained by percutaneous puncture. 5Fr 10cm Terumo [place] sheath placed in right Femoral artery. [id number] jcallihan 04:21 PM 0.035 145cm Navilyst 3mmJ wire [id number] jcallihan 04:21 PM 5Fr FL 4 catheter inserted over the wire [facility] jcallihan 04:21 PM LCA angiography performed in multiple views. jcallihan 04:22 PM HR=84 bpm, ZUIX=370/89 mmhg, SpO2=98.0 %, Resp=25 B/min, Comment=nsr 04:23 PM Recorded Pressure: Ao, HR=81, Condition=Condition 1 (Aorta) Ao 107/72/87 04:23 PM Recorded Pressure: Ao, HR=81, Condition=Condition 1 (Aorta) Ao 103/69/83 04:24 PM Catheter removed jcallihan 04:25 PM 5Fr FR 4 catheter inserted over the wire [facility] jcallihan 04:25 PM RCA angiography performed in multiple views. jcallihan 04:26 PM Catheter removed jcallihan 04:27 PM 5Fr Pigtail catheter inserted over the wire DN jcallihan 04:27 PM Pressure channel 1 zeroed. 04:27 PM HR=72 bpm, NUPW=705/85 mmhg, SpO2=98.0 %, Resp=24 B/min 04:27 PM Recorded Pressure: LV, HR=85, Condition=Condition 1 (Left Ventricle) LV 120/-7/9 04:27 PM Catheter crossed the aortic valve and was selectively placed in the left ventricle. Pressures recorded on pullback for left heart catheterization. jcallihan 04:27 PM Recorded Pressure: LV, Ao, HR=85, Condition=Condition 1 (Left Ventricle) LV 94/23/28, (Aorta) Ao 99/76/88 04:28 PM Bolus angiogram of left Ventricle complete: 8 ml/sec for a total of 24 mls jcallihan 04:28 PM Time: 16:13 Patient comfortable and pain free: Yes jcallihan 04:28 PM Time: 16:13LOC: 4 = Oriented but drowsy jcallihan 04:32 PM HR=84 bpm, TBLL=296/86 mmhg, SpO2=99.0 %, Resp=15 B/min, Comment=nsr 04:33 PM Catheter removed jcallihan 04:34 PM Sheath exchanged for a 6 Fr 11 cm Terumo [place] sheath [id number] jcallihan 04:34 PM Inflation device was opened. jcallihan 04:35 PM Pressure channel 1 zeroed. 04:37 PM HR=85 bpm, CZGH=982/80 mmhg, SpO2=98.0 %, Resp=28 B/min, Comment=nsr 04:37 PM At 16:37 the ACT was 124 seconds. jcallihan 04:38 PM Time: 16:37 Angiomax 0.75mg/kg bolus: 16.5 ml Intravenous Given by Priscilla Schroeder RN Rolle pump jcallihan 04:38 PM Time: 16:38 Angiomax 1.75mg/kg/hr: 38.5 ml/hr Intravenous Given by Priscilla Schroeder RN Rolle pump jcallihan 04:39 PM 6Fr JL3.5 Cordis guide catheter was used to cannulate the PCI vessel successfully. reused? No jcallihan 04:39 PM .014 Prowater 180cm guide wire across target lesion- successful. reused? No jcallihan 04:42 PM HR=82 bpm, IEFW=537/85 mmhg, SpO2=98.0 %, Resp=26 B/min 04:43 PM Time: 16:28LOC: 4 = Oriented but drowsy jcallihan 04:43 PM Time: 16:28 Patient comfortable and pain free: Yes jcallihan 04:43 PM Asist FFR Catheter advanced to target lesion. Proximal LAD. jcallihan 04:43 PM Recorded Pressure: Ao, HR=85, Condition=Condition 1 (Aorta) Ao 112/74/91 04:44 PM Lesion found in Proximal LAD. Pre Stenosis: 60 Pre ROSAS Flow: jcallihan 04:44 PM Proximal Left Anterior Descending Coronary Artery with 60% stenosis. If graft is supplying this territory, 0 % stenosis. jcallihan 04:46 PM Time: 16:46 90mg Adenosine in 90 ml 0.9 NS 907 ml/hr Intravenous Given by Priscilla Schroeder RN Rolle pump jcallihan 04:47 PM HR=84 bpm, TTOH=810/80 mmhg, SpO2=98.0 %, Resp=25 B/min, Comment=nsr 04:47 PM Recorded Pressure: Ao, HR=86, Condition=Condition 1 (Aorta) Ao 107/71/89 04:48 PM FFR Measurement: 0.84 jcallihan 04:48 PM Angiomax stopped. jcallihan 04:48 PM Adenosine stopped. jcallihan 04:48 PM Flow Wire/Catheter removed intact jcallihan 04:49 PM Guide wire removed intact. jcallihan 04:49 PM Guide catheter removed intact. jcallihan 04:52 PM HR=87 bpm, PIYF=317/84 mmhg, SpO2=99.0 %, Resp=25 B/min 04:52 PM Bolus angiogram of right Femoral complete: 4 ml/sec for a total of 7 mls jcallihan 04:54 PM Coronary Dominance: right jcallihan 04:54 PM Procedure completed at 16:54 06/02/2018 jcallihan 04:54 PM Did you address ROSAS flow and Dominance? Yes jcallihan 04:55 PM Sign out completed: Radiation Dose 433 mGy, 4787.45 mGy/cm2 Fluoro Time: 5.6 Isovue 370 - 200ml contrast 103 ml given by Ninfa Belle MD, [facility]. Complications: None. The patient was discharged out of the optical laboratory technician in stable condition. Cardiac Rehab Consult needed: NoConfirmed administered medications: Yes jcallihan 04:55 PM Isovue 370 - 200ml,1 Bottle(s) used. jcallihan 04:55 PM Sheath left in place to be pulled on floor/holding areaV+Pad jcallihan 04:55 PM Estimated Blood Loss: less than 20cc jcallihan 04:55 PM Post ECG NSR jcallihan 04:55 PM Post Blood Pressure 144/84 jcallihan 04:55 PM 16:55 Post Pulses Bilateral DP & PT 2+ jcallihan 04:55 PM Information taught Cardiac Cath and IVUS/Flowire jcallihan 04:55 PM Education needs Procedure, Plan of Care, and Responsibilities of Patient in Care jcallihan 04:55 PM Learning barriers :None jcallihan 04:56 PM Education Methods Verbal jcallan 04:56 PM Education evaluation Able to repeat information jcallihan 04:56 PM Site status No bleeding/hematoma - Rt Groin as reported by Salena Pak RT at 16:56 jcallihan 04:56 PM Opsite applied jcallihan 04:56 PM Plavix, Effient or Brilinta given No jcallihan 04:59 PM Time: 16:43 Patient comfortable and pain free: Yes jcallihan 04:59 PM Time: 16:43LOC: 4 = Oriented but drowsy jcallihlauren 05:00 PM Report given to 2N RN Pt taken to 2N Room #9. 17:00 jcallihan 05:00 PM Patient out of room: 17:00 jcallihan 05:00 PM Complications: None jcallihan 05:00 PM Family's phone number given to doctor so that they could be informed of findings. jcallihan 05:07 PM Lesion found in Proximal RCA. Pre Stenosis: 30 Pre ROSAS Flow: jcallihan 05:07 PM Lesion found in Mid RCA. Pre Stenosis: 40 Pre ROSAS Flow: jcallihan 05:07 PM Lesion found in Distal RCA. Pre Stenosis: 25 Pre ROSAS Flow: jcallihan 05:08 PM Lesion found in Proximal Circumflex. Pre Stenosis: 30 Pre ROSAS Flow: jcallihan 05:08 PM Lesion found in 1st Marginal. Pre Stenosis: 30 Pre ROSAS Flow: jcallihan 05:10 PM Circumflex, Obtuse Marginal, Left Posterior Descending, and Left Posterolateral Coronary Arteries with 99 % stenosis. If graft is supplying this area, 0 % stenosis jcallihan 05:11 PM Lesion found in Mid 1st Marginal. Pre Stenosis: 99 Pre ROSAS Flow: jcallihan Complications Complication None None Hemodynamics Pressures Site Systolic/A Wave Diastolic/V Wave Mean AO 107 72 87 AO 103 69 83 LV 120 -7 9 LV 94 23 28 AO 99 76 88 AO 112 74 91 AO 107 71 89 Post Procedure Information Blood Pressure: 144/84 mmHg Rhythm: NSR Post procedural instructions were given Closure Device Time Device Success/Fail Manual Compression Site Checks Time Location Status Staff Sheath In? Note 04:56 PM Rt Groin No bleeding/hematoma Salena Pak RT Pulses Time Site Pre-Procedure Post-Procedure Note Bilateral radial 2+ Bilateral DP & PT 2+ 4:55:00 PM Bilateral DP & PT 2+ Updated by John Mims RN on 06/02/2018 5:17:21 PM electronically signed on 06/02/2018 5:17:42 PM with status of Final
[2018-06-02] MEDS ORDERED: *HR* Atropine Sulfate 1 MG/10 ML SYRINGE ONE (20:39)
--- NOTE | 2018-06-02 21:15 | Electrocardiograph Report ---
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
[2018-06-03] MEDS: Ringers Solution, Lactated 1,000 ML IVC SCH ×3 (04:37→18:05)
[2018-06-03 05:45] LABS: Hematocrit 34.9 % (35.3-44.9); Hemoglobin 11.6 g/dL (11.5-15.4); Mean Corpuscular HGB Conc 33.2 g/dL (31.6-35.5); Mean Corpuscular Hemoglobin 29.2 pg (28.0-33.3); Mean Corpuscular Volume 87.9 fL (83.0-100.0); Mean Platelet Volume 9.5 fL (9.4-12.4); Platelet Count 231 K/mcL (140-400); Red Blood Count 3.97 M/mcL (3.82-4.97); Red Cell Distribution Width 12.8 % (11.5-14.5)
[2018-06-03 06:17] LABS: BUN/Creatinine Ratio 18 (6-26); Blood Urea Nitrogen 8 mg/dL (6-20); Calcium 8.7 mg/dL (8.6-10.3); Carbon Dioxide 22 mEq/L (23-29); Chloride 105 mEq/L (98-107); Glucose 275 mg/dL (70-105); Osmolality,Calculated 284 (280-300); Potassium 4.1 mEq/L (3.5-5.1); Sodium 133 mEq/L (136-145); eGFR For Non-African Americans > 60 (> 60)
[2018-06-03] MEDS: Aspirin 81 MG TAB.CHEW PO SCH (08:24)
[2018-06-03] MEDS: Insulin DETEMIR 100 UNIT/ML X5UNITS SQ SCH ×2 (08:24→21:08)
[2018-06-03] MEDS: Isosorbide MONOnitrate (24 HR) 30 MG TAB.ER.24H PO SCH (08:24)
[2018-06-03] MEDS: Cholecalciferol (D-3) 1,000 UNIT TABLET PO SCH (08:24)
[2018-06-03] MEDS: *HR* Heparin 5,000 UNIT/ML VIAL SQ SCH ×3 (08:25→21:07)
[2018-06-03] MEDS: Fluticasone Propionate Nasal 50 MCG/SPRAY BOTTLE NS SCH (08:26)
[2018-06-03] MEDS: Insulin LISPRO 300 UNITS/3 ML VIAL SQ SCH ×3 (08:26→17:08)
--- NOTE | 2018-06-03 08:58 | Electrocardiograph Report ---
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
--- NOTE | 2018-06-03 09:13 | Cardiology Progress Note ---
<Afsaneh Chavez Maria C - Last Filed: 06/03/18 14:27> Date of Encounter: 06/03/18 Time of Encounter: 09:08 Assessment and Plan (1) NSTEMI (non-ST elevated myocardial infarction) Current Visit: Yes Status: Acute - Pt had [place] in 2005, was seen here, by Dr. Watson, cannot find records of this - Troponin 7.40 on 06/01, LHC on 06/02 demonstrated double vessel CAD - recommend medical therapy and management of risk factors - Medical therapy - 80mg Atorvastatin, 81mg ASA, 12.5 BID Coreg, 75mg Plavix, 50mg Losartan, 30mg Imdur - Management of risk factors - DM needs better control A1c is 12.1, exercise 30m/day, Lower TG 296 through increased statin and diet/exercise, weight management, weigh risks/benefits of contraceptive use - pt can follow-up as outpatient, no further recommendations during this hospital stay Discussion w patient/family: The assessment and plan as outlined above was discussed with the patient and/or family members who expressed understanding and agreement. All questions were answered. Thank you for involving us in the care of your patient. Please call with any questions. Subjective Principal diagnosis: NSTEMI Interval history: Pt had LHC yesterday which demonstrated double vessel coronary disease with 60% occlusion of proximal LAD and 99% stenosis in a small branch of OM1 no amenable to revascularization, with EF 55%. No acute events overnight, pt continues to denies symptoms. Recommending optimization of risk factors and medical management. Spoke with patient about exercise, managing diabetes, weight loss, management of triglycerides through diet and medication. Objective Vital Signs, Last 4 Hours Temp Pulse Resp BP Pulse Ox 06/03/18 08:00 76 06/03/18 06:34 98.4 F 68 18 128/79 98 General: Conversant, No Apparent Distress HEENT: Atraumatic, Normocephaly, Mucus Membranes Moist Neck: No JVD, Normal carotid pulses Cardiac: Reg Rate and Rhythm, Normal S1 and S2, No Murmur Lungs: Normal Breath Sounds, No Wheeze, Rales, Rhonchi Neuro: Alert and responsive, No focal deficits noted Abdomen: Soft, Non-Tender Skin: No rashes noted on visualized skin Musculoskeletal: No Chest Wall Tenderness Extremities: No Clubbing, No Cyanosis, Normal Pulses, Other (mild ricky LE swelling) Results 06/03/18 05:24 06/03/18 04:49 Lab Results 06/03/18 06/03/18 04:49 05:24 WBC 12.2 H Hgb 11.6 D Hct 34.9 L Plt Count 231 Sodium 133 L Potassium 4.1 Chloride 105 Carbon Dioxide 22 L BUN 8 Creatinine 0.44 L Glucose 275 H Calcium 8.7 - Imaging and Cardiology Chest Xray: report reviewed Echo: report reviewed Cardiac cath: report reviewed Consult Discharge Plan - Plan Referrals: Ninfa Belle MD [Partnered Physician] - (Office will call patient at h ome with follow up appointment) Sara Owens CNP [Advanced Practice Nurse] - 06/11/18 1:00 pm <Felipa London - Last Filed: 06/03/18 17:17> Date of Encounter: 06/03/18 Assessment and Plan Discussion w patient/family: I examined this patient and my medical decision-making was reviewed with the Resident Physician. I agree with the documented findings, disposition and treatment plan as described. Ms. Arias underwent LHC yesterday. Patient asymptomatic, also denies groin pain, swelling or bruising. Appears normal on exam. Discussed findings with patient. Recommend aggressive risk factor reduction and medical management. Patient placed on DAPT, statin and BB. LVEF 55%. Will sign off. Recommend Cardiac Rehab referral and outpatient Cardiology office follow up. Objective Vital Signs, Last 4 Hours Temp Pulse Resp BP Pulse Ox 06/03/18 16:25 98.4 F 90 18 137/85 98 Results 06/03/18 05:24 06/03/18 04:49 Lab Results 06/03/18 06/03/18 04:49 05:24 WBC 12.2 H Hgb 11.6 D Hct 34.9 L Plt Count 231 Sodium 133 L Potassium 4.1 Chloride 105 Carbon Dioxide 22 L BUN 8 Creatinine 0.44 L Glucose 275 H Calcium 8.7
[2018-06-03] MEDS ORDERED: Insulin LISPRO 300 UNITS/3 ML VIAL SQ ONE (12:19)
[2018-06-03] MEDS ORDERED: Insulin LISPRO 300 UNITS/3 ML VIAL SQ SCH (12:21)
--- NOTE | 2018-06-03 12:22 | Internal Med Progress Note ---
Hospitalist Progress Note - Encounter Date of Encounter: 06/03/18 Time of Encounter: 12:20 - Subjective Interval History: patient was seen and examined at bedside. I discussed post cardiac catheter on 06/02. Denies any overnight events. Has no chest pain. Denies fever, chills, shortness of breath, nausea or vomiting - Exam Vitals: Temp Pulse Resp BP Pulse Ox 98.4 F 91 18 121/77 98 06/03/18 11:04 06/03/18 11:04 06/03/18 11:04 06/03/18 11:04 06/03/18 11:04 Exam: General: Patient is alert, oriented, no acute distress, obese Head: atraumatic, normocephalic, Eye: normal appearance, PERRL, no scleral icterus, no conjunctival injection ENT: mucous membranes moist, normal external ear exam Neck: normal inspection, trachea midline, full ROM, no carotid bruits Chest: normal inspection, symmetric chest rise Respiratory: Decreased breath sounds secondary to body habitus, Good respiratory effort. Bilateral breath sounds are clear without wheezing, crackles, or r honchi. Cardiovascular: Distant heart sounds secondary to body habitus, Regular rate and rhythm. s1 and s2 No clicks, rubs, gallops, or murmors. Abdomen: Bowel sounds present normoactive x-4 quadrants. Abdomen is soft, nondistended. no Epigastric tenderness. No guarding or rebound. No organomega ly noted, obese musculoskeletal: Spontaneously moving all extremities. no edema, no calf tenderness Skin: warm, dry, intact. Neuro: Alert and oriented x4. Sensation light touch intact. Cranial nerves 2- 12 is intact. No focal deficit Psych: Patient's affect is normal - Assessment and Plan (1) NSTEMI (non-ST elevated myocardial infarction) Current Visit: Yes Status: Acute Assessment and Plan: Pt had [place] in 2005 ( reports that the only medication prescribed to her was atenolol, unsure if she takes ASA) Pt has elevated and increasing trop in the last 24 hours - .07, 0.29, 1.71, 7.40 Status post [facility] 06/02/18- blood vessel disease, cardiology recommended medical management will continue ASA, Plavix, lipitor, coreg. losartan, IMDUR- BP and HR controlled TTE 06/01/18- LVEF 65%. Normal LV chamber size, wall thickness and function. lipid panel and A1c noted. contraceptive use discussed with breezy as she is on estrogen containing method. she is to follow up with her PCP as OP for changed in her contraception. CTPA - ruled out PE TTE: Impressions: LVEF 65%. Normal LV chamber size, wall thickness and function. Normal right ventricular structure and function. No significant valvular dysfunction. Unable to estimate RVSP due to lack of TR jet. Small focal (posterior to RA) pericardial effusion without echocardiographic tamponade physiology. (2) Hyperglycemia due to type 2 diabetes mellitus Current Visit: Yes Status: Acute Assessment and Plan: uncontrolled secondary to ? medication non- compliance A1c 12.1 BHB 1.03 detemir increased to 30 units twice a day additional 8 units of lispro ordered as blood glucose is >300 We will continue with high dose lispro for sliding scale- adjust as per finger sticks. was counseled on medication compliance. 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 trending down CTPA- with no signs of infection UA negative if she develops fever or SIRS will consider starting her on ABx. (7) Morbid obesity Current Visit: Yes Status: Chronic Assessment and Plan: Was counseled nutrition consulted (8) GERD (gastroesophageal reflux disease) Current Visit: Yes Status: Acute Assessment and Plan: omeprazole PO (9) DVT prophylaxis Current Visit: Yes Status: Acute Assessment and Plan: On heparin drip - Time Spent with Patient Total time spent is greater than 50% in coordination of care (as documented) at patient's floor/unit and/or counseling patient: Internal Medicine: Result - Labs CBC & Chem 7: 06/03/18 05:24 06/03/18 04:49 Labs: Short CBC 06/03/18 Range/Units 05:24 WBC 12.2 H (4.3-11.1) K/mcL Hgb 11.6 D (11.5-15.4) g/dL Hct 34.9 L (35.3-44.9) % Plt Count 231 (140-400) K/mcL BMP 06/03/18 04:49 Sodium 133 L Potassium 4.1 Chloride 105 Carbon Dioxide 22 L BUN 8 Creatinine 0.44 L Glucose 275 H Calcium 8.7 - ABG Interpretation ABG results: PT/INR, D-dimer PT 11.8 Seconds (9.4-12.1) 05/31/18 14:36 D-Dimer 559 ng/mLFEU (0-500) H 05/31/18 18:43 Consult Discharge Plan - Plan Referrals: Ninfa Belle MD [Partnered Physician] - (Office will call patient at home with follow up appointment) Sara Owens MATERIALS BRANCH CHIEF [Advanced Practice Nurse] - 06/11/18 1:00 pm (2) Hyperglycemia due to type 2 diabetes mellitus Qualifiers: Diabetes mellitus prison insulin use: with bed bug exterminator use Qualified Code(s): E11.65 - Type 2 diabetes mellitus with hyperglycemia; Z79.4 - FPC (current) use of insulin (4) Hyperlipidemia Qualifiers: Hyperlipidemia type: unspecified Qualified Code(s): E78.5 - Hyperlipidemia, unspecified (5) Hypertension Qualifiers: Hypertension type: essential hypertension Qualified Code(s): I10 - Essential (primary) hypertension (6) Leukocytosis, unspecified Qualifiers: Leukocytosis type: unspecified Qualified Code(s): D72.829 - Elevated white blood cell count, unspecified (8) GERD (gastroesophageal reflux disease) Qualifiers: Esophagitis presence: with esophagitis Qualified Code(s): K21.0 - Gastro- esophageal reflux disease with esophagitis
[2018-06-04] MEDS: Ringers Solution, Lactated 1,000 ML IVC SCH (01:43)
[2018-06-04] MEDS: *HR* Heparin 5,000 UNIT/ML VIAL SQ SCH (05:54)
[2018-06-04 06:52] VITALS: BP 124/77
--- NOTE | 2018-06-04 07:26 | Discharge Summary ---
- NOTES TO OUTPATIENT PROVIDER Notes to Outpatient Provider: follow up with OCP- as she has heart disease consider OCP that does not contain estrogen or other form of contraception. follow blood glucose and adjust insulin, A1c. follow lipid panel and adjust statins. needs close follow up with cardiology team Orders not resulted at time of discharge: Pending orders 06/02/18 17:04 ECG 12 lead ECG [ECG] Stat Date of Encounter: 06/04/18 Time of Encounter: 07:24 - Discharge Diagnosis (1) NSTEMI (non-ST elevated myocardial infarction) Priority: Primary Status: Acute (2) Hyperglycemia due to type 2 diabetes mellitus Priority: Secondary Status: Acute Qualifiers: Diabetes mellitus longterm insulin use: with rat exterminator use Qualified Code(s): E11.65 - Type 2 diabetes mellitus with hyperglycemia; Z79.4 - continuous churn buttermaker (current) use of insulin (3) Secondary diabetes mellitus with HHNC (hyperglycemia hyperosmolar non- ketotic coma) Priority: Secondary Status: Acute (4) Hyperlipidemia Priority: Secondary Status: Acute Qualifiers: Hyperlipidemia type: unspecified Qualified Code(s): E78.5 - Hyperlipidemia, unspecified (5) Hypertension Priority: Secondary Status: Acute Qualifiers: Hypertension type: essential hypertension Qualified Code(s): I10 - Essential (primary) hypertension (6) Leukocytosis, unspecified Priority: Secondary Status: Acute Qualifiers: Leukocytosis type: unspecified Qualified Code(s): D72.829 - Elevated white blood cell count, unspecified (7) Morbid obesity Priority: Secondary Status: Chronic (8) GERD (gastroesophageal reflux disease) Priority: Secondary Status: Acute Qualifiers: Esophagitis presence: with esophagitis Qualified Code(s): K21.0 - Gastro- esophageal reflux disease with esophagitis (9) DVT prophylaxis Priority: Secondary Status: Acute Hospital course: Ms. Arias is a 38 year old female with history of IDDM, HLD , previous CA in 2006 presented to the ED with chest pain. she described her ain as "chest pain that began yesterday around noon while she was walking around a store. She states that it came on suddenly, felt like someone was sitting on her chest, radiated to between her shoulder blades, made worse by belching, made better by NG she received in the ED, and was 10/10 in severity, lasting several hours. She has never felt pain like this before, and it was not the same as the pain she felt in 2006 with her previous CA. She endorses nausea, vomiting x 2, and diaphoresis, but denies lightheadedness, dizziness, numbness or tingling, or visual changes. Her LMP was 4-1/2 mos ago when she had her implantable BC removed from her arm, and is currently on OCP that prevents her from menstruating.". While the emergency department troponins were found to be elevated. CTPA of the chest was performed which ruled out pulmonary embolism and she was started on heparin drip for non-STEMI. Cardiology was consulted and recommended left heart catheterization which was performed on 06/01 revealing double vessel disease and it was recommended for her to continue medical therapy at this time. Blood glucose remained elevated throughout admission. A1c was 12.1, insulin was adjusted with control of her blood glucose. Lipid panel revealed elevated triglyceride levels. She was started on high intensity and statin secondary to CAD. She is to follow-up with her primary care physician and have lipid panel repeated in 3 months to adjust statin dosage as per the lipid panel. She currently denies being sexually active however has been on estrogen containing oral contraceptive medication as per cardiology recommendations the oral contraceptive was discontinued for primary care physician to start her on contraceptive not containing estrogen. I discussed this with patient and she is in agreement, she will follow-up with Dr. Marquez in regards to her OCP. i called Dr. marquez however office was closed at [phone] ( [facility] i discussed barrier contraceptives (condoms) and abstinence from sexual activity until she sees her PCP and have her OCP changed and she agrees. she reports that she has not been sexually active and will refrain from sexual activity until she follows up. i discussed the importance of diet and exercise and nutrition she understands. nursing completed diabetic teaching of her insulin regimen. i discussed the importance of medication compliance she understands. LHC: Impressions: Double vessel coronary artery disease. The left ventricle is normal and has normal contractility EF 55% TTE: Impressions: LVEF 65%. Normal LV chamber size, wall thickness and function. Normal right ventricular structure and function. No significant valvular dysfunction. Unable to estimate RVSP due to lack of TR jet. Small focal (posterior to RA) pericardial effusion without echocardiographic tamponade physiology. CTPA: IMPRESSION: No finding to suggest pulmonary embolus. No acute abnormality otherwise DVT: Bilateral lower extremity: normal superficial and deep exam. Discharge discussed with: patient, nurse, social work, case management, quality improvement consultant - Time Spent with Patient Total time spent providing and/or coordinating discharge services: Greater than 30 minutes (45) - Discharge Medications Prescriptions: Alcohol Antiseptic Pads [Alcohol Pads] 1 each TP ACHS #100 med..pad Aspirin 81 mg PO DAILY #30 tab.chew Atorvastatin Calcium 80 mg PO HS #30 tablet Blood Sugar Diagnostic [Glucose Test Strip] 1 each ACHS #100 strip Carvedilol [Coreg] 12.5 mg PO BIDWM 30 Days #120 tablet Clopidogrel [Plavix] 75 mg PO DAILY #30 tablet Insulin DETEMIR [Levemir Flextouch] 30 unit SQ BID #5 insuln.pen Insulin LISPRO [Humalog Kwikpen U-100] 0 unit SQ ACHS #5 mls Isosorbide MONOnitrate (24 HR) [Imdur] 30 mg PO DAILY #30 tab.er.24h Lancets 1 each ACHS #100 each Losartan Potassium [Cozaar] 50 mg PO DAILY #30 tablet Pantoprazole Sodium [Protonix] 40 mg PO DAILY #30 tablet.dr Florentin Dalal, Diabetic [Pen Collins] 1 each ACHS #100 dis.needle Home Medications: Ergocalciferol (VITAMIN D2) [Vitamin D2] 50,000 unit PO 2XW 06/01/18 [History] Fluticasone Propionate Nasal [Flonase] 1 spray NS BID 06/01/18 [History] Metformin HCl [Glucophage] 1,000 mg PO BID 06/01/18 [History] Acetaminophen [Tylenol] 1,000 mg PO BID PRN 06/02/18 [History] Acetaminophen/Pamabrom [Midol Caplet] 2 each PO BID PRN 06/02/18 [History] Dextrose [Glucose] 2 - 3 each PO DAILY PRN 06/02/18 [History] Alcohol Antiseptic Pads [Alcohol Pads] 1 each TP ACHS #100 med..pad 06/04/18 [Rx] Aspirin 81 mg PO DAILY #30 tab.chew 06/04/18 [Rx] Atorvastatin Calcium 80 mg PO HS #30 tablet 06/04/18 [Rx] Blood Sugar Diagnostic [Glucose Test Strip] 1 each [facility] #100 strip 06/04/18 [Rx] Carvedilol [Coreg] 12.5 mg PO BIDWM 30 Days #120 tablet 06/04/18 [Rx] Clopidogrel [Plavix] 75 mg PO DAILY #30 tablet 06/04/18 [Rx] Insulin DETEMIR [Levemir Flextouch] 30 unit SQ BID #5 insuln.pen 06/04/18 [Rx] Insulin LISPRO [Humalog Kwikpen U-100] 0 unit SQ ACHS #5 mls 06/04/18 [Rx] Isosorbide MONOnitrate (24 HR) [Imdur] 30 mg PO DAILY #30 tab.er.24h 06/04/18 [Rx] Lancets 1 each [facility] #100 each 06/04/18 [Rx] Losartan Potassium [Cozaar] 50 mg PO DAILY #30 tablet 06/04/18 [Rx] Pantoprazole Sodium [Protonix] 40 mg PO DAILY #30 tablet.dr 06/04/18 [Rx] Pen Needle, Diabetic [Pen Collins] 1 each [facility] #100 dis.needle 06/04/18 [Rx] Allergies/Adverse Reactions: Allergy/AdvReac Type Severity Reaction Status Date / Time ibuprofen [From Advil] Allergy See Verified 06/02/18 12:03 Comments diphenhydramine AdvReac Nausea Verified 06/02/18 12:03 [From Benadryl] Date of admission: 06/01/18 13:57 Primary care physician: Seferino Marquez MD Consults: 05/31/18 18:19 Consult to Cardiac Rehabilitation-Phase1 [CONS] Routine Comment: Reason for Consult: AMI Call Completed: Yes Consult to Cardiology [CONS] Routine Comment: Consulting Provider: Card[facility] [place] Reason for Consult: Chest pain NSTEMI Call Completed: Yes Consult to Nurse Navigator [CONS] Routine Comment: 06/01/18 10:43 Consult to Nutrition [CONS] Routine Comment: Consulting Provider: NUTRITION Reason for Dietary Consult: PO Supplementation - Constitutional Vitals: Temp Pulse Resp BP Pulse Ox 98.0 F 78 18 124/77 97 06/04/18 06:51 06/04/18 06:51 06/04/18 06:51 06/04/18 06:51 06/04/18 06:51 General appearance: Present: A&O X 3, morbidly obese Exam: General: Patient is alert, oriented, no acute distress, obese Head: atraumatic, normocephalic, Eye: normal appearance, PERRL, no scleral icterus, no conjunctival injection ENT: mucous membranes moist, normal external ear exam Neck: normal inspection, trachea midline, full ROM, no carotid bruits Chest: normal inspection, symmetric chest rise Respiratory: Decreased breath sounds secondary to body habitus, Good respiratory effort. Bilateral breath sounds are clear without wheezing, crackles, or rhonchi. Cardiovascular: Distant heart sounds secondary to body habitus, Regular rate and rhythm. s1 and s2 No clicks, rubs, gallops, or murmors. Abdomen: Bowel sounds present normoactive x-4 quadrants. Abdomen is soft, nondistended. no Epigastric tenderness. No guarding or rebound. No organomegaly noted, obese musculoskeletal: Spontaneously moving all extremities. no edema, no calf tenderness Skin: warm, dry, intact. Neuro: Alert and oriented x4. Sensation light touch intact. Cranial nerves 2- 12 is intact. No focal deficit Psych: Patient's affect is normal - Patient Status Disposition: Home, Self-Care Condition: Fair Functional capacity at discharge: independent ambulation Overall status at discharge: patient is progressing back to baseline - Discharge Instructions Follow Up With: Ninfa Belle MD [Partnered Physician] - (Office will call patient at home with follow up appointment) Sara Owens CNP [Advanced Practice Nurse] - 06/11/18 1:00 pm - Diet and Activity Activity: increase activity as tolerated Diet: diabetic diet (cardiac )
[2018-06-04] MEDS: Insulin LISPRO 300 UNITS/3 ML VIAL SQ SCH (07:59)
[2018-06-04] MEDS: Aspirin 81 MG TAB.CHEW PO SCH (08:04)
[2018-06-04] MEDS: Insulin DETEMIR 100 UNIT/ML X5UNITS SQ SCH (08:04)
[2018-06-04] MEDS: Isosorbide MONOnitrate (24 HR) 30 MG TAB.ER.24H PO SCH (08:04)
[2018-06-04] MEDS: Cholecalciferol (D-3) 1,000 UNIT TABLET PO SCH (08:05)
[2018-06-04] MEDS: Fluticasone Propionate Nasal 50 MCG/SPRAY BOTTLE NS SCH (08:06)
== END 2018-06-04 09:57 | disposition home or self-care (01) | DRG 280 ==
LOC: EMEROOARM 14:29 → 2NENU 14:29 → 2NNU 06-02 17:08
PROVIDERS: ADMIT Internal Medicine; ATTEND Internal Medicine